=== PATIENT | female | born 1955 | race African-American/Black ===

== ENCOUNTER → 2017-02-01 15:39 | Outpatient (CLI) | payer MEDICARE, MEDICAID ==
[2015-07-04 00:28] VITALS: BMI 51.6
[~2017-02-01 15:39] MED LIST: ASPIRIN325 MG PO; CATAPRES0.2 MG PO; CLARITIN 10 MG10 MG PO; COREG25 MG PO; CYCLOBENZAPRINE10 MG PO; CYMBALTA60 MG PO; DITROPAN X10 MG/BOTT OR; FEXOFENADINE H180 MG PO; FLUTICASONE PRO16 GM NASAL; GLUCOPHAGE1000 MG PO; HYDROCODONE-APA1 TAB OR; IPRAT-ALBUT 0.5-3 ML UPD; K-DUR20 MEQ PO; KENALOG 0.1 % 115 GM TP; LANTUS SOL100 UNIT/1 SQ; LASIX80 MG OR; LEVAQUIN750 MG PO; LOTREL 10/20 CA1 CAP PO; MAG-OX 400 MG400 MG PO; MULTIPLE VITAMI1 TA1 PO; NEURONTIN 300300 MG PO; NEXIUM40 MG PO; NOVOLIN R100 U/ML SQ; NOVOLOG100 U/M1 SQ; OMNICEF300 MG PO; PATANOL 0.1 % OP5 ML EACH EYE; PRAVACHOL40 MG PO; PROVENTIL HFA6.7 GM INH; SINGULAIR10 MG PO; ZANAFLEX2 M1 PO; ZOFRAN8 MG PO
== END | disposition home or self-care (01) ==
LOC: D.CT 15:39
DX: R10.11 Right upper quadrant pain (principal); R10.12 Left upper quadrant pain

== ENCOUNTER 2017-04-19 12:35 | Inpatient (IN) | payer MEDICARE, MEDICAID ==
[~2017-04-19] VITALS: Ht 162.6 cm; Wt 187.3 kg
[2017-04-19 14:19] VITALS: BP 190/77
[2017-04-19 14:55] VITALS: BP 190/77; Ht 162.6 cm; Wt 187.3 kg
[2017-04-19 14:56] LABS: BASOPHILS 0.2 % (0-2); EOSINOPHILS 0.2 % (0-7); HEMATOCRIT 37.4 % (36.0-48.0); HEMOGLOBIN 11.4 g/dL (12-16); IMMATURE GRANULOCYTES 0.5 % (0-5); LYMPHOCYTES 27.7 % (15-50); MCH 25.6 pg (26.0-34.0); MCHC 30.5 g/dL (31.0-37.0); MEAN PLATELET VOLUME 9.6 fL (7.4-10.4); MONOCYTES 16.3 % (2-11); NEUTROPHILS 55.1 % (40-80); RBC 4.45 10x6/uL (4.00-5.40); RDW 15.5 % (11.5-14.5); WBC 9.4 10x3/uL (4.8-10.8)
[2017-04-19 14:57] LABS: PLATELET COUNT 278 10x3/uL (130-400)
[2017-04-19 15:56] LABS: ALBUMIN 3.2 g/dL (3.4-5.0); BILIRUBIN - TOTAL 0.5 mg/dL (0.2-1.3); CALCIUM 9.2 mg/dL (8.5-10.1); CARBON DIOXIDE 36.6 mmol/L (21.0-32.0); CREATININE - SERUM 1.3 mg/dL (0.6-1.3); POTASSIUM - SERUM 3.6 mmol/L (3.5-5.1); PROTEIN - SERUM 7.7 g/dL (6.4-8.2)
[2017-04-19 19:00] VITALS: BP 182/89
[2017-04-20] VITALS: BP 180/87
[2017-04-20 00:26] LABS: APPEARANCE CLOUDY (CLEAR); BILIRUBIN NEGATIVE (NEGATIVE); COLOR YELLOW (YELLOW); GLUCOSE NEGATIVE (NEGATIVE); KETONE NEGATIVE (NEGATIVE); LEUKOCYTE ESTERASE TRACE (NEGATIVE); NITRITE NEGATIVE (NEGATIVE); PROTEIN TRACE mg/dL (NEGATIVE); UROBILINOGEN NORMAL (NORMAL)
[2017-04-20 00:57] LABS: BACTERIA MANY /hpf (NONE SEEN); EPITHELIAL CELLS 0-5 /hpf (0-5); MUCUS <1+ /lpf (NONE SEEN); WHITE CELLS - URINE 0-5 /hpf (0-5)
[2017-04-20 00:58] LABS: AMORPHOUS SEDIMENT >1+ /lpf (NONE SEEN); CALCIUM OXALATE CRYSTALS OCC /hpf (NONE SEEN); GRANULAR CAST OCC /lpf (NONE SEEN); HYALINE CAST 0-5 /lpf (NONE SEEN); WAXY CAST RARE /lpf (NONE SEEN)
[2017-04-20 04:00] VITALS: BP 194/93
[2017-04-20 05:08] LABS: BASOPHILS 0.2 % (0-2); EOSINOPHILS 2.1 % (0-7); HEMATOCRIT 36.4 % (36.0-48.0); HEMOGLOBIN 11.2 g/dL (12-16); IMMATURE GRANULOCYTES 0.3 % (0-5); LYMPHOCYTES 28.3 % (15-50); MCHC 30.8 g/dL (31.0-37.0); MCV 84.7 fL (80.0-100.0); MEAN PLATELET VOLUME 10.1 fL (7.4-10.4); MONOCYTES 13.1 % (2-11); PLATELET COUNT 322 10x3/uL (130-400); RDW 15.4 % (11.5-14.5); WBC 9.4 10x3/uL (4.8-10.8)
[2017-04-20 05:40] LABS: ALKALINE PHOSPHATASE 64 U/L (46-116); ALT (SGPT) 21 U/L (10-68); BILIRUBIN - TOTAL 0.48 mg/dL (0.2-1.3); CALC OSMOLALITY 289 mosm/kg (275-300); CALCIUM 9.1 mg/dL (8.5-10.1); CARBON DIOXIDE 37.4 mmol/L (21.0-32.0); CHLORIDE - SERUM 100 mmol/L (98-107); CREATININE - SERUM 1.2 mg/dL (0.6-1.3); GLUCOSE 220 mg/dL (74-106); MAGNESIUM - SERUM 1.5 mg/dL (1.8-2.4); PHOSPHOROUS 2.6 mg/dL (2.5-4.9); POTASSIUM - SERUM 3.1 mmol/L (3.5-5.1); PRO BNP 444 pg/mL (0-125); SODIUM 142 mmol/L (136-145); UREA NITROGEN 13 mg/dL (7-18); eGFR NON AFRICAN AMERICAN 48 mL/min (90-120)
[2017-04-20 07:54] VITALS: BP 210/90
[2017-04-20 11:45] LABS: POTASSIUM - SERUM 3.6 mmol/L (3.5-5.1)
[2017-04-20 12:19] VITALS: BP 181/74
[2017-04-20 15:37] VITALS: BP 152/71
[2017-04-20 17:42] LABS: CKMB 0.5 U/L (0.0-3.6); CREATINE KINASE 152 UL (21-215); TROPONIN-I < 0.017 ng/mL (0.000-0.060)
[2017-04-20 17:44] LABS: CKMB 0.4 U/L (0.0-3.6); CREATINE KINASE 141 UL (21-215); TROPONIN-I < 0.017 ng/mL (0.000-0.060)
[2017-04-20 20:00] VITALS: BP 146/66
[2017-04-20 20:22] LABS: CKMB 0.3 U/L (0.0-3.6); CREATINE KINASE 97 UL (21-215)
[2017-04-20 20:23] LABS: TROPONIN-I < 0.017 ng/mL (0.000-0.060)
[2017-04-21 00:05] VITALS: BP 138/65
[2017-04-21 04:00] VITALS: BP 140/76
[2017-04-21 04:34] LABS: BASOPHILS 0.1 % (0-2); EOSINOPHILS 5.1 % (0-7); HEMATOCRIT 34.6 % (36.0-48.0); HEMOGLOBIN 10.3 g/dL (12-16); IMMATURE GRANULOCYTES 0.3 % (0-5); LYMPHOCYTES 30.1 % (15-50); MCH 25.8 pg (26.0-34.0); MCHC 29.8 g/dL (31.0-37.0); MCV 86.7 fL (80.0-100.0); MEAN PLATELET VOLUME 10.2 fL (7.4-10.4); MONOCYTES 12.7 % (2-11); NEUTROPHILS 51.7 % (40-80); PLATELET COUNT 264 10x3/uL (130-400); RBC 3.99 10x6/uL (4.00-5.40); RDW 15.2 % (11.5-14.5); WBC 7.9 10x3/uL (4.8-10.8)
[2017-04-21 04:56] LABS: ALBUMIN 2.7 g/dL (3.4-5.0); ANION GAP 8.3 mmol/L (8-16); BILIRUBIN - TOTAL 0.5 mg/dL (0.2-1.3); CALCIUM 8.8 mg/dL (8.5-10.1); CARBON DIOXIDE 38.4 mmol/L (21.0-32.0); CREATININE - SERUM 1.4 mg/dL (0.6-1.3); MAGNESIUM - SERUM 1.9 mg/dL (1.8-2.4); PHOSPHOROUS 3.6 mg/dL (2.5-4.9); POTASSIUM - SERUM 3.7 mmol/L (3.5-5.1); PROTEIN - SERUM 7.5 g/dL (6.4-8.2)
[2017-04-21 08:11] VITALS: BP 136/70
[2017-04-21 12:27] VITALS: BP 146/80
--- NOTE | 2017-04-25 13:38 | EC ---
PATIENT:LIANG SALVADOR DATE OF SERVICE: 04/19/17 SEX: F MEDICAL RECORD: [id number] DATE OF : 53 LOCATION:[facility] AGE OF PATIENT: 61 ADMISSION DATE: 04/19/17 REFERRING PHYSICIAN: INTERPRETING PHYSICIAN: SIDNEY SOTELO MD ECHOCARDIOGRAM REPORT ECHO CHARGES 5 ECHO LIMITED CLINICAL DIAGNOSIS: SOB ECHOCARDIOGRAPHIC MEASUREMENTS (adult normal given) AC root (d.<3.7cm) 3.7 LV Septum d (<1.2 cm> 2.3 Valve Excursion 1.4 LV Septum (systole) 2.6 Left Atria (s.<4.0cm> 4.7 LVPW d(<1.2cm) 2.4 RV (d.<2.3cm) LVPW (sytole) 2.6 LV diastole(<5.6CM) 4.4 MV E-F(>70mm/sec) LV systole 2.1 LVOT Diameter MV exc.(>10mm) 1.8 Est.ejection fraction (50-75%) Pericardial Effusion N DOPPLER: LVIT A E LA RVSP LVOT AOP1/2T Asc. Ao RVOT RA PA AV Gradient Peak AV Mean AV Area MV Gradient Peak MV Mean MV Area COMMENTS: Screw Machine Set Up Operator Tool: Brandi RAHMAN Test Engine Mechanic:2 Dr. Mattson TAPE# PACS DATE OF SERVICE: 04/23/2017 Adequate 2D echo, color flow, spectral Doppler, and M-mode. LVH is present. LV internal dimensions are normal. Wall motion is normal. EF is greater than 55%. Aortic valve is tricuspid. No stenosis by Doppler interrogation. The left atrium is dilated at 4.7 cm. Mitral valve is thickened. Mild MR. Right-sided chamber is grossly normal. Trace TR. TRANSINT:[id number] Voice Confirmation ID: [id number] DOCUMENT ID: [id number] ECHOCARDIOGRAM REPORT [id number] LIANG SALVADOR SIDNEY SOTELO MD at 1338 CC: [id number] DICTATION DATE: 04/23/17 0931 SHELTER SUPERVISOR: 04/23/17 1231 DIS IN 04/21/17 [id number] [place] [address]
== END 2017-04-21 17:11 | disposition home health service (06) | DRG 190 ==
LOC: D.SDCHOLD 12:35 → D.MS 12:35
PROVIDERS: ADMIT Family Medicine
DX: J44.0 Chronic obstructive pulmonary disease with (acute) lower respiratory infection (principal); J18.9 Pneumonia, unspecified organism; Z68.45 Body mass index [BMI] 70 or greater, adult; J44.1 Chronic obstructive pulmonary disease with (acute) exacerbation; R09.02 Hypoxemia; Z79.4 Long term (current) use of insulin; I12.9 Hypertensive chronic kidney disease with stage 1 through stage 4 chronic kidney disease, or unspecified chronic kidney disease; E11.22 Type 2 diabetes mellitus with diabetic chronic kidney disease; N18.3 Chronic kidney disease, stage 3 (moderate); G47.33 Obstructive sleep apnea (adult) (pediatric); E78.5 Hyperlipidemia, unspecified; I50.9 Heart failure, unspecified; E66.01 Morbid (severe) obesity due to excess calories; D64.9 Anemia, unspecified; Z87.891 Personal history of nicotine dependence; E11.65 Type 2 diabetes mellitus with hyperglycemia

== ENCOUNTER → 2017-05-29 14:57 | Outpatient (CLI) | payer MEDICARE, MEDICAID ==
[2017-04-19 14:55] VITALS: BMI 70.9
[2017-05-29 18:42] LABS: MAGNESIUM - SERUM 1.5 mg/dL (1.8-2.4)
== END | disposition home or self-care (01) ==
LOC: D.LABREF 14:57
PROVIDERS: Family Medicine
DX: I50.9 Heart failure, unspecified (principal); E83.42 Hypomagnesemia

== ENCOUNTER → 2017-06-14 18:49 | Outpatient (CLI) | payer MEDICARE, MEDICAID ==
[2017-04-19 14:55] VITALS: BMI 70.9
== END | disposition home or self-care (01) ==
LOC: D.LABREF 18:49
DX: E83.42 Hypomagnesemia (principal)

== ENCOUNTER → 2017-07-04 19:15 | Outpatient (CLI) | payer MEDICARE, MEDICAID ==
[2017-04-19 14:55] VITALS: BMI 70.9
== END | disposition home or self-care (01) ==
LOC: D.LAB 19:15
DX: E83.42 Hypomagnesemia (principal)

== ENCOUNTER → 2017-09-22 08:42 | Outpatient (CLI) | payer MEDICARE, MEDICAID ==
[2017-04-19 14:55] VITALS: BMI 70.9
[2017-09-24 20:06] LABS: CYCLIC CITRULL PEPTIDE IGG/IGA 5 units (0-19)
[2017-09-25 10:10] LABS: ANA REFLEX - DIRECT Negative (Negative)
== END | disposition home or self-care (01) ==
LOC: D.RT 07-12 09:00 → D.CT 07-12 10:00 → D.LAB 07-12 10:30 → D.RT 08-23 13:00 → D.CT 08-23 14:00 → D.LAB 08-23 14:30 → D.RT 08:42
PROVIDERS: Internal Medicine Pulmonary Disease
DX: J18.9 Pneumonia, unspecified organism (principal)

== ENCOUNTER 2017-12-29 08:30 | Emergency (ER) | payer MEDICARE, MEDICAID ==
[2017-04-19 14:55] VITALS: BMI 70.9
== END 2017-12-29 14:15 | disposition home or self-care (01) ==
LOC: D.ER 08:30
DX: R09.2 Respiratory arrest (principal); I46.9 Cardiac arrest, cause unspecified; I10 Essential (primary) hypertension